=== PATIENT | male | born 1935 | race Caucasian/White ===

== ENCOUNTER 2020-09-17 21:08 | Emergency (ER) | payer MEDICARE ==
[~2020-09-17] VITALS: Ht 182.9 cm; Wt 72.6 kg
[2020-09-17] MEDS ORDERED: TDAP DIPH,PERTUSS,TET VAC/PF 0.5 ML DISP.SYRIN IM ONE ×2 (22:00→22:21)
[2020-09-17] MEDS ORDERED: LIDOCAINE HCL 2% 20 ML VIAL TP ONE (22:00)
[2020-09-17] MEDS ORDERED: NEOMY/BACITRA/POLYMYXIN B OINT UD PACKET TP ONE ×2 (22:09→22:30)
--- NOTE | 2020-09-17 22:24 | NUR ---
Patient discharged to home in stable condition w/. Written and verbal after care instructions given. Patient verbalizes understanding of instructions. Stressed follow up or return to ER for worsening s/s.
== END 2020-09-17 22:24 | disposition home or self-care (01) ==
LOC: ER 21:14
DX: S81.812A Laceration without foreign body, left lower leg, initial encounter (principal); W22.09XA Striking against other stationary object, initial encounter; Y92.89 Other specified places as the place of occurrence of the external cause
CPT/HCPCS: 12004; 90471; 90715; 99283; J3490; A4663